=== PATIENT | female | born 1965 | race Caucasian/White ===

== ENCOUNTER → 2018-05-03 | Day surgery (SDC) | payer OTHER ==
[~2018-05-03] MED LIST: BACLOFEN20 MG PO; BENICAR HCT 201 EACH PO; BENICAR HCT 401 EACH PO; BENICAR20 MG PO; BERBERINE PO; DYMISTA NASAL S23 GM; FENTANYL CITRATE/PF 100MCG/2 ML INJ ONE; LIDOCAINE 1% W/EPINEPHRINE 20 ML VIAL ONE; LIDOCAINE HCL 2% LOCAL INJ 5 ML SDV VIAL INJ ONE; METAXALONE800 MG PO; METFORMIN HCL500 MG PO; MIDAZOLAM HCL 2 MG/2 ML VIAL ONE; MUPIROCIN 2% OINT 22 GM TUBE ONE; NORCO 10-325 T1 EACH PO; ONDANSETRON HCL INJ 2 MG/ML VIAL ONE; PHENYLEPHRINE HCL 1% 10 MG/ML VIAL ONE; PROPOFOL IV EMULSION 10 MG/ML 20 ML VIAL ONE; SERTRALINE HCL50 MG PO; SKELAXIN800 MG PO; VASCEPA PO; ZOLOFT PO; ZOLOFT50 MG PO
[2018-05-03 13:30] VITALS: BP 95/57
--- OUTSIDE RECORDS SUMMARY | 2018-05-26 07:08 | XMS REPORT | Summary of Care ---
Author Author [facility] Organization [facility] Address Unknown Phone Unavailable Encounter SAM Porras(GINGER) [id number] Date(s): 02/11/18 - 02/11/18 [facility] Care [address], [address] [phone] Discharge Disposition: Home or Self Care Attending Physician: Nicole Hya MD Vital Signs Most recent to 1 oldest [Reference Range]: Height 152.4 cm (02/11/18 10:46 AM) Temperature Oral 98.1 DegF [96.4-99.1 DegF] (02/11/18 10:46 AM) Blood Pressure 123/84 mmHg [90-140/60-90 mmHg] (02/11/18 10:46 AM) Peripheral Pulse 64 bpm Rate [60-100 bpm] (02/11/18 10:46 AM) Weight 86.477 kg (02/11/18 10:46 AM) Body Mass Index 37.23 m2 (02/11/18 10:46 AM) Problem List Condition Effective Dates Status Health Status Informant Acute Active bronchitis(Confirmed ) Benign Resolved hypertension(Confirm ed) Bronchospasm(Confirm Active ed) Chronic Resolved pain(Confirmed) Depression(Confirmed Active ) Hypertension(Confirm Active ed) Morbid Active obesity(Confirmed) Allergies, Adverse Reactions, Alerts Substance Reaction Severity Status penicillins Active Medications Benicar 20 mg oral tablet 20 mg=1 tab, PO, Daily, # 90 tab, 1 Refill(s) Start Date: 02/11/18 Status: Ordered Celestone 6 mg/mL, Route: IM, ONCE, Dosing Weight 86.477, kg, Start date: 02/11/18 11:04: 00 CDT, Stop date: 02/11/18 11:04:00 CDT Start Date: 02/11/18 Stop Date: 02/11/18 Status: Completed Dymista 137 mcg-50 mcg/inh nasal spray 1 spray, NASAL, BID, PRN Instill 1 spray in each nostril twice a day as needed for allergy symptions, # 1 ea, 3 Refill(s) Start Date: 02/11/18 Status: Ordered ipratropium 0.5 mg, Route: NEB, ONCE, Dosing Weight 86.477, kg, Start date: 02/11/18 11:04: 00 CDT, Stop date: 02/11/18 11:04:00 CDT Start Date: 02/11/18 Stop Date: 02/11/18 Status: Completed Levaquin 500 mg oral tablet 500 mg=1 tab, PO, Q24H, X 10 day, # 10 tab, 0 Refill(s), Pharm[facility]: [id number] Start Date: 02/11/18 Stop Date: 02/21/18 Status: Ordered metaxalone 800 mg oral tablet 800 mg=1 tab, PO, TID, # 30 tab, 0 Refill(s) Start Date: 02/11/18 Stop Date: 02/21/18 Status: Ordered [place] 10/325 oral tablet 1 tab, PO, TID, PRN Pain, # 90 day, 0 Refill(s) Start Date: 02/11/18 Stop Date: 03/13/18 Status: Ordered ProAir HFA 90 mcg/inh inhalation aerosol with adapter 2 puff, INHALER, Q4H, PRN wheezing, coughing, or shortness of breath, # 1 ea, 1 Refill(s), [facility]acy: [id number] Start Date: 02/11/18 Status: Ordered Vascepa 1 g oral capsule 2 gm=2 cap, PO, BID, 0 Refill(s) Start Date: 02/11/18 Status: Ordered Zoloft 50 mg oral tablet vascep, PO, Daily, # 90 tab, 0 Refill(s) Start Date: 02/11/18 Status: Ordered Results No data available for this section Immunizations No data available for this section Procedures Procedure Date Related Diagnosis Body Site Status Ankle joint operations Completed Hysterectomy Completed Laminectomy Completed Spinal fusion Completed Social History Social History Type Response Substance Abuse Use: None. Sexual Sexually active: Yes. Employment/School Status: Employed. Alcohol Current, Frequency: 1-2 times per week. Smoking Status Former smoker; Type: Cigarettes; Exposure to Tobacco Smoke None; Cigarette Smoking Last 365 Days No; Reg Smoking Cessation Counseling No; Number of years: 10; entered on: 02/11/18 Assessment and Plan No data available for this section
--- OUTSIDE RECORDS SUMMARY | 2018-05-26 07:08 | XMS REPORT | Continuity of Care Document ---
Author Author Interface Organization Interface Address Unknown Phone Unavailable Problems Problem Status Onset Date Classification Date Reported Comments Source Acute bronchitis Active Problem 02/14/2018 [facility] Benign hypertension Resolved Problem 02/14/2018 [facility] Bronchospasm Active Problem 02/14/2018 [facility] Chronic pain Resolved Problem 02/14/2018 [facility] Depression Active Problem 02/14/2018 [facility] Hypertension Active Problem 02/14/2018 [facility] Morbid obesity Active Problem 02/14/2018 [facility] Medications Medication Details Route Status Patient Instructions Ordering Provider Order Date Source Sertraline 50 MG Oral Tablet [Zoloft] vascep, PO, Daily, # 90 tab, 0 Refill(s) Active 02/11/2018 [facility] Olmesartan medoxomil 20 MG Oral Tablet [Benicar] 20 mg =1 tab, PO, Daily, # 90 tab, 1 Refill(s) Active 02/11/2018 [facility] Azelastine hydrochloride 0.137 MG/ACTUAT / Fluticasone propionate 0.05 MG/ ACTUAT Metered Dose Nasal [place] [Dymista] 1 spray, NASAL, BID, PRN Instill 1 spray in each nostril twice a day as needed for allergy symptions, # 1 ea, 3 Refill(s) Active 02/11/2018 [facility] Acetaminophen 325 MG / Hydrocodone Bitartrate 10 MG Oral Tablet [[place] 10/325] 1 tab, PO, TID, PRN Pain, # 90 day, 0 Refill(s) Active 02/11/2018 [facility] metaxalone 800 mg oral tablet 800 mg=1 tab, PO, TID, # 30 tab, 0 Refill(s) Active [facility] icosapent ethyl 1000 MG Oral Capsule [Vascepa] 2 gm=2 cap, PO, BID, 0 Refill(s) Active 02/11/2018 [facility] 200 ACTUAT Albuterol 0.09 MG/ACTUAT Metered Dose Inhaler [ProAir HFA] 2 puff, INHALER, Q4H, PRN wheezing, coughing, or shortness of breath, # 1 ea, 1 Refill(s), [facility]acy: [id number] Active [facility]/11/[facility] Ipratropium 0.5 mg, Route: NEB, ONCE, Dosing Weight 86.477, kg, Start date: 02/11/18 11:04:00 CDT, Stop date: 02/11/18 11:04:00 CDT Inactive 02/11/2018 [facility] Celestone 6 mg/mL, Route: IM, ONCE, Dosing Weight 86.477, kg, Start date: 02/11/18 11:04:00 CDT, Stop date: 02/11/18 11:04:00 CDT Inactive 02/11/[facility] Levofloxacin 500 MG Oral Tablet [Levaquin] 500 mg=1 tab, PO, Q24H, X 10 day, # 10 tab, 0 Refill(s), Pharmacy: [id number] Active 02/11/2018 [facility] Allergies, Adverse Reactions, Alerts Substance Category Reaction Severity Reaction type Status Date Reported Comments Source penicillins Assertion Drug allergy Active [facility] Immunizations Immunization Date Given Site Status Last Updated Comments Source Results Order Name Results Value Reference Range Date Interpretation Comments Source Vital Signs Vital Sign Value Date Comments Source BMI Calculated 37.23 2017 [facility] Height 152.4 cm 02/11/2018 [facility] Weight 86.477 02/11/2018 [facility] Heart Rate 64 02/11/2018 [facility] Temperature Oral (F) 98.1 F 02/11/2018 [facility] Systolic (mm Hg) 123 2017 [facility] Diastolic (mm Hg) 84 2017 [facility] Encounters Location Location Details Encounter Type Encounter Number Reason For Visit Attending Provider ADM Date DC Date Status Source Outpatient [id number] [facility] 02/11/2018 Active [facility] Outpatient [id number] [facility] 02/11/2018 02/12/2018 [facility] Procedures Procedure Code Date Perfomer Comments Source Ankle joint operations [id number] [facility] Hysterectomy [id number] [facility] Laminectomy [id number] [facility] Spinal fusion [id number] [facility]
== END | disposition home or self-care (01) ==
LOC: OR 09:27
PROVIDERS: ATTEND Physical Medicine & Rehabilitation Pain Medicine
DX: G89.4 Chronic pain syndrome (principal); M54.16 Radiculopathy, lumbar region; M46.1 Sacroiliitis, not elsewhere classified; G57.00 Lesion of sciatic nerve, unspecified lower limb; Z98.1 Arthrodesis status; I10 Essential (primary) hypertension; Z88.0 Allergy status to penicillin; Z01.810 Encounter for preprocedural cardiovascular examination; Z87.891 Personal history of nicotine dependence; Z91.81 History of falling
CPT/HCPCS: 63650; 95972; C1897; 77003; 93005; J2001; J2250; J2370; J2405

== ENCOUNTER → 2023-07-08 | Day surgery (SDC) | payer BC, OTHER ==
[~2023-07-08] MED LIST changes: +ASHWAGANDHA RO300 MG; +BACLOFEN10 MG PO; +BUPIVACAINE 0.25% 30ML SDV ONE; +DEXAMETHASONE SOD PHOS 10 MG/1 ML VIAL ONE; +IOPAMIDOL 200 MG/ML 20 ML VIAL IT ONE; +LACTATED RINGER'S 0 ML ONE; +LACTATED RINGER'S 1,000 ML ONE; -LIDOCAINE 1% W/EPINEPHRINE 20 ML VIAL ONE; +LIDOCAINE HCL 1% 30ML-PF VIAL ONE; +MAGNESIUM; -MIDAZOLAM HCL 2 MG/2 ML VIAL ONE; -MUPIROCIN 2% OINT 22 GM TUBE ONE; -ONDANSETRON HCL INJ 2 MG/ML VIAL ONE; -PHENYLEPHRINE HCL 1% 10 MG/ML VIAL ONE; +VALERIAN ROOT1 GM; +VITAMIN D31 ML; +ZINC
[2023-07-08 06:54] VITALS: TEMP 97.4
[2023-07-08 07:10] VITALS: BP 122/81; PULSE 62; RESP 16; O2SAT 98
== END | disposition home or self-care (01) ==
LOC: OR 05:29
PROVIDERS: ATTEND Physical Medicine & Rehabilitation Pain Medicine
DX: M54.16 Radiculopathy, lumbar region (principal); G89.4 Chronic pain syndrome; M79.18 Myalgia, other site; M25.511 Pain in right shoulder; I10 Essential (primary) hypertension; R94.31 Abnormal electrocardiogram [ECG] [EKG]; Z79.899 Other long term (current) drug therapy
CPT/HCPCS: 64483; 64484; 93005; J1100; J2001 ×2; J2704; J3010; J7121; Q9967; 77002